=== PATIENT | male | born 1980 | race Caucasian/White ===

== ENCOUNTER → 2017-02-28 | Outpatient (REF) | payer OTHER ==
[2017-02-28 18:09] LABS: INR 1.03
[2017-02-28 19:25] LABS: BLOOD UREA NITROGEN 12 MG/DL (7-18); CREATININE FOR GFR 0.86 MG/DL (0.70-1.30); GLOMERULAR FILTRATION RATE > 60.0 (>60)
== END ==
LOC: M LABDRAW1 17:06
PROVIDERS: ATTEND Physical Medicine & Rehabilitation
DX: M48.07 Spinal stenosis, lumbosacral region (principal)

== ENCOUNTER 2017-05-23 20:37 | Emergency (ER) | payer OTHER ==
[~2017-05-23] VITALS: Ht 193 cm; Wt 102.0 kg
[2017-05-23] MEDS ORDERED: CYCL10TA PO (20:51)
[2017-05-23] MEDS ORDERED: MOTR200T44 PO (20:51)
[2017-05-23] MEDS ORDERED: GABA600T PO (20:51)
[2017-05-23] MEDS ORDERED: LIDOCAINE 1% MDV 20ML VIAL IM ONE (22:15)
[2017-05-23 22:28] VITALS: BP 131/79
[2017-05-23] MEDS ORDERED: NORCO 5/325MG TABLET (BULK FOR ED) PO ONE (22:30)
== END 2017-05-23 22:49 | disposition home or self-care (01) ==
LOC: M ED 21:58
DX: S81.812A Laceration without foreign body, left lower leg, initial encounter (principal); X58.XXXA Exposure to other specified factors, initial encounter; Y92.018 Other place in single-family (private) house as the place of occurrence of the external cause; Y93.89 Activity, other specified; Y99.8 Other external cause status; G89.29 Other chronic pain; Z79.899 Other long term (current) drug therapy; Z87.891 Personal history of nicotine dependence

== ENCOUNTER → 2017-05-27 | Outpatient (REF) | payer OTHER ==
[~2017-05-27] MED LIST: CYCL10TA PO; GABA600T PO; MOTR200T44 PO
[2017-05-27 17:07] LABS: BLOOD UREA NITROGEN 11 MG/DL (7-18); GLOMERULAR FILTRATION RATE > 60.0 (>60)
== END ==
LOC: M LABDRAW1 15:42
PROVIDERS: ATTEND Physical Medicine & Rehabilitation
DX: M51.26 Other intervertebral disc displacement, lumbar region (principal)

== ENCOUNTER → 2018-02-21 | Outpatient (REF) | payer OTHER | LOC: M LAB REF 19:21 | DX: J02.9 Acute pharyngitis, unspecified (principal) | CPT/HCPCS: 87081 ==

== ENCOUNTER 2018-07-14 15:53 | Emergency (ER) | payer OTHER ==
[2018-07-14] MEDS: ASPIRIN 81 MG CHEW TABLET PO (16:30)
[2018-07-14 16:39] LABS: BASO % 0.2 % (0.0-1.0); EOS # 0.2 10^3/uL (0.0-0.50); EOS % 1.6 % (0.0-3.0); HEMATOCRIT 37.3 % (42.0-52.0); HEMOGLOBIN 13.1 g/dl (13.5-17.5); IMMATURE GRANULOCYTE % 0.6 % (0-3.0); LYMPH # 2.1 10^3/uL (1.5-4.5); MEAN CORPUSCULAR HGB CONC 35.1 g/dl (32.0-36.5); MEAN CORPUSCULAR VOLUME 88.2 fl (80.0-96.0); MONO # 0.5 10^3/uL (0.0-0.8); MONO % 4.7 % (0.0-5.0); NEUTROPHILS % 71.9 % (36.0-66.0); PLATELET COUNT, AUTOMATED 209 10^3/uL (150-450); RED BLOOD COUNT 4.23 10^6/uL (4.30-6.10); RED CELL DISTRIBUTION WIDTH 13.2 % (11.5-14.5); WHITE BLOOD COUNT 9.8 10^3/uL (4.0-10.0)
[2018-07-14 16:42] LABS: INR 1.12; PARTIAL THROMBOPLASTIN TIME 27.1 SECONDS (25.4-37.6); PROTHROMBIN TIME 14.5 SECONDS (12.1-14.4)
[2018-07-14] MEDS: NS 1,000 ML IV (16:42)
[2018-07-14] MEDS: ONDANSETRON 4MG/2ML VIAL (J2405) IV (16:42)
[2018-07-14] MEDS: LORazepam 2 MG/ML VIAL (J2060) IV ×2 (16:42→17:43)
[2018-07-14 16:51] LABS: ACETAMINOPHEN LEVEL < 2.0 UG/ML (10.0-30.0); ALBUMIN/GLOBULIN RATIO 1.29 (1.00-1.93); ALT/SGPT 27 U/L (12-78); ANION GAP 10 MEQ/L (8-16); AST/SGOT 16 U/L (7-37); BILIRUBIN,DIRECT < 0.1 MG/DL (0.0-0.2); BILIRUBIN,TOTAL 0.4 MG/DL (0.2-1.0); BLOOD UREA NITROGEN 15 MG/DL (7-18); CALCIUM LEVEL 8.6 MG/DL (8.5-10.1); CARBON DIOXIDE LEVEL 25 MEQ/L (21-32); CHLORIDE LEVEL 108 MEQ/L (98-107); CPK CREATINE PHOSPHOKINASE 130 U/L (39-308); CREATININE FOR GFR 1.14 MG/DL (0.70-1.30); GLOMERULAR FILTRATION RATE > 60.0 (>60); GLUCOSE, FASTING 170 MG/DL (70-100); LIPASE 65 U/L (73-393); POTASSIUM SERUM 3.3 MEQ/L (3.5-5.1); SALICYLATE LEVEL < 1.7 MG/DL (5.0-30.0); SODIUM LEVEL 143 MEQ/L (136-145); TOTAL PROTEIN 7.1 GM/DL (6.4-8.2); TROPONIN I < 0.02 NG/ML (< 0.10)
[2018-07-14 16:53] LABS: LACTIC ACID SEPSIS PROTOCOL 1.9 MMOL/L (0.4-2.0)
[2018-07-14 16:57] LABS: ALKALINE PHOSPHATASE 60 U/L (45-117); CK-MB VALUE MASS < 1.0 NG/ML (<3.6); FREE T4 1.34 NG/DL (0.76-1.46); MB/CK RELATIVE INDEX 0.76 (< OR =4); NT-PRO BNP 73 PG/ML (<125)
[2018-07-14 17:04] LABS: ETHYL ALCOHOL (ETHANOL) < 0.003 % (0.000-0.010)
[2018-07-14] MEDS: ACETAMINOPHEN 325 MG TAB PO (19:00)
[2018-07-14 19:34] LABS: AMPHETAMINES LEVEL URINE NEGATIVE (NEGATIVE); BARBITURATES URINE NEGATIVE (NEGATIVE); BENZODIAZEPINES URINE NEGATIVE (NEGATIVE); CANNABINOIDS URINE POSITIVE (NEGATIVE); COCAINE METABOLITE URINE NEGATIVE (NEGATIVE); METHADONE URINE NEGATIVE (NEGATIVE); OPIATES URINE POSITIVE (NEGATIVE); PHENCYCLIDINE URINE NEGATIVE (NEGATIVE)
[2018-07-14 19:36] LABS: CPK CREATINE PHOSPHOKINASE 112 U/L (39-308); TROPONIN I < 0.02 NG/ML (< 0.10)
[2018-07-14 19:37] LABS: CK-MB VALUE MASS < 1.0 NG/ML (<3.6); MB/CK RELATIVE INDEX 0.89 (< OR =4)
== END 2018-07-14 22:43 | disposition home or self-care (01) ==
LOC: M ED 15:53
DX: R07.89 Other chest pain (principal); R53.81 Other malaise; R00.0 Tachycardia, unspecified; I45.81 Long QT syndrome; R06.02 Shortness of breath; M54.5 Low back pain; G89.29 Other chronic pain; F95.2 Tourette's disorder; F17.200 Nicotine dependence, unspecified, uncomplicated; F12.10 Cannabis abuse, uncomplicated; Z79.899 Other long term (current) drug therapy
CPT/HCPCS: J2405

== ENCOUNTER → 2019-04-03 | Outpatient (REF) | payer OTHER ==
[~2019-04-03] MED LIST changes: +ACET-716 PO; -GABA600T PO; +GABA600T4 PO; +NABU-119 PO
== END ==
LOC: M LAB REF 19:26
PROVIDERS: ATTEND Physician Assistant Medical
DX: J02.9 Acute pharyngitis, unspecified (principal)

== ENCOUNTER 2020-01-07 08:48 | Emergency (ER) | payer OTHER ==
[~2020-01-07] VITALS: Ht 193 cm; Wt 109.4 kg
[2020-01-07] MEDS ORDERED: TIZA4TAB4 (09:09)
[2020-01-07] MEDS ORDERED: DULO1CAP4 (09:09)
[2020-01-07] MEDS ORDERED: CELE1CAP9 (09:09)
[2020-01-07] MEDS ORDERED: GABA800T4 (09:09)
[2020-01-07] MEDS ORDERED: KETOROLAC 30 MG/ML VIAL (J1885) IV ONE (11:30)
[2020-01-07] MEDS ORDERED: NS 1,000 ML IV ONE (11:30)
[2020-01-07 11:36] LABS: BASO % 0.3 % (0.0-1.0); EOS % 0.3 % (0.0-3.0); HEMATOCRIT 44.5 % (42.0-52.0); HEMOGLOBIN 14.6 g/dl (13.5-17.5); LYMPH % 12.6 % (24.0-44.0); MEAN CORPUSCULAR HEMOGLOBIN 29.5 pg (27.0-33.0); MEAN CORPUSCULAR HGB CONC 32.8 g/dl (32.0-36.5); MEAN CORPUSCULAR VOLUME 89.9 fl (80.0-96.0); MONO # 0.6 10^3/uL (0.0-0.8); MONO % 7.7 % (0.0-5.0); NEUTROPHILS % 78.8 % (36.0-66.0); PLATELET COUNT, AUTOMATED 217 10^3/uL (150-450); RED BLOOD COUNT 4.95 10^6/uL (4.30-6.10); WHITE BLOOD COUNT 7.6 10^3/uL (4.0-10.0)
[2020-01-07] MEDS ORDERED: ISOVUE-370 76% 100ML VIAL (Q9967) As Ordered ONE (12:00)
--- NOTE | 2020-01-07 12:39 | REP ---
MAXILLOFACIAL CT STUDY WITH IV CONTRAST: HISTORY: Left mandibular swelling and tenderness. Extensive dental caries. CT CONTRAST DOSE: 75 mL of intravenous Isovue 370. CT FINDINGS: There is diffuse swelling of the superficial subcutaneous soft tissues in the left perimandibular region consistent with cellulitis. There is slight thickening of the platysma on the left. There is no visible abscess. There are multiple carious maxillary and mandibular teeth bilaterally. No bony destructive lesion is seen. No definite adenopathy seen. The parotid and submandibular glands are normal and symmetric. No vascular abnormality is seen. There are fairly advanced degenerative disc changes in the lower cervical spine C5-6 and C6-7 and to a lesser extent C4-5. IMPRESSION: Multiple carious teeth. Diffuse soft tissue swelling left perimandibular soft tissues. No evidence of abscess or adenopathy. Electronically Signed by Justin Sams MD 01/07/2020 05:25 P
[2020-01-07] MEDS ORDERED: CLINDAMYCIN 900 MG in IV 1 EA IV ONE (13:00)
[2020-01-07] MEDS ORDERED: methylPREDNISolone INJ 125 MG/2 ML VIAL (J2930) IV ONE (13:00)
[2020-01-07] MEDS ORDERED: CLEO300C2 PO (14:39)
[2020-01-07] MEDS ORDERED: NORC1TAB7 PO (14:39)
[2020-01-07] MEDS ORDERED: PRED10TA2 PO (14:39)
[2020-01-07 14:44] VITALS: BP 122/79
[2020-01-07] MEDS ORDERED: ACETAMINOPHEN 325 MG TAB PO ONE (14:45)
== END 2020-01-07 14:47 | disposition home or self-care (01) ==
LOC: M ED 08:48
DX: K02.9 Dental caries, unspecified (principal); L03.211 Cellulitis of face; K05.6 Periodontal disease, unspecified; Z79.899 Other long term (current) drug therapy
CPT/HCPCS: 36415; 70487; 80047; 83605; 85025; 96365; 96375; 99284; J1885; J2930; Q9967